=== PATIENT | female | born 1965 | race Caucasian/White ===

== ENCOUNTER → 2016-02-29 | Outpatient (CLI) | payer OTHER ==
[~2016-02-29] MED LIST: LEVO.075 PO; LEVO75TA3 PO; OXYC1SOL5 PO; RIVA10 PO; SERT-129 PO; SIMV40TA PO; Z.0.COMMODE-3:1; Z.0.WALKERFRONT; ZOCO40TA PO
[2016-02-29 15:28] LABS: HEMATOCRIT 34.5 % (35.0-46.0); MEAN CORPUSCULAR HGB CONC 33.3 % (32.0-36.0); PLATELET COUNT 243 TH/MM3 (150-450); RED BLOOD COUNT 4.26 MIL/MM3 (4.00-5.30); REVIEW FLAG FINAL; WHITE BLOOD COUNT 8.9 TH/MM3 (4.0-11.0)
== END ==
LOC: CPRE 14:48
PROVIDERS: ATTEND Orthopaedic Surgery
DX: Z01.812 Encounter for preprocedural laboratory examination (principal); Z96.652 Presence of left artificial knee joint; M24.562 Contracture, left knee
CPT/HCPCS: 36415; 85027

== ENCOUNTER → 2016-03-07 | Day surgery (SDC) | payer OTHER ==
[~2016-03-07] VITALS: Ht 160 cm; Wt 93.5 kg
[~2016-03-07] MED LIST changes: +ACETAMINOPHEN 1000 MG/100 ML VIAL IV ONE; +BUPIVACAINE/EPINEPHRINE 0.25% PF 30 ML VIAL ONE; +FAMOTIDINE 20 MG/2 ML VIAL ONE; +INSULIN HUMAN REGULAR 1,000 UNITS/10 ML VIAL SQ PRN; +KETOROLAC TROMETHAMINE 60 MG/2 ML (IM) VIAL IM ONE; +LACTATED RINGER'S 1000 ML IV SCH; -LEVO75TA3 PO; +METOPROLOL TARTRATE 25 MG TAB PO PRN; +MIDAZOLAM HCL 2 MG/2 ML VIAL ONE; +MORPHINE SULFATE 4 MG/ML INJ IV PUSH PRN; +ONDANSETRON HCL 4 MG/2 ML VIAL IV PRN; +ONDANSETRON HCL 4 MG/2 ML VIAL IV PUSH ONE; -OXYC1SOL5 PO; +PROPOFOL 200 MG/20 ML AMP IV ONE; -RIVA10 PO; +SODIUM CHLORID 0.9% 500 ML IV SCH; +SODIUM CHLORIDE 0.9% FLUSH 5 ML FLUSH IVF PRN; +SODIUM CHLORIDE 0.9% FLUSH 5 ML FLUSH IVF SCH; -Z.0.COMMODE-3:1; -Z.0.WALKERFRONT; -ZOCO40TA PO; +ceFAZolin 1,000 MG/NS 100 ML IV SCH; +ceFAZolin INJ 1,000 MG VIAL ONE; +fentaNYL CITRATE 250 MCG/5 ML AMP ONE; +oxyCODONE/ACETAMINOPHEN 5 MG/325 MG TAB PO PRN
[2016-03-07 06:29] VITALS: BP 147/70; PULSE 72; RESP 20; TEMP 97.7; O2SAT 99
[2016-03-07 11:12] VITALS: BP 158/75; PULSE 80; RESP 18; TEMP 98.3; O2SAT 98
--- NOTE | 2016-03-12 23:23 | MP ---
cc: Lisa RIVERA. DATE OF SURGERY 03/07/16 PREOPERATIVE DIAGNOSIS Arthrofibrosis left total knee arthroplasty. POSTOPERATIVE DIAGNOSIS Arthrofibrosis left total knee arthroplasty. OPERATION PERFORMED Closed manipulation left knee and arthroscopic resection of scar left knee SURGEON Shayan Rivera MD BUSINESS INTELLIGENCE DEVEL[employer] [place] INFANTE ANESTHESIA General endotracheal with supplemental local. FINDINGS Preoperative range of motion was 0 degrees extension to nearly 100 degrees of flexion. The postoperative range of motion was 0 degrees extension to 125 degrees of flexion with gravity and 135 degrees with pressure. Intra-articular findings showed severe suprapatellar arthrofibrosis with scar tissue that was fairly proliferative. The patellofemoral joint tracked properly and appeared normal. The medial compartment had some hypertrophic scarring. There was scarring in the intercondylar area and infrapatellar area as well. Laterally there was extensive scarring with flap-like changes and meniscoid appearing scar along the lateral edge catching between the lateral femoral condyle and lateral tibial plateau. PROCEDURE IN DETAIL The patient was brought to the clean-air operating suite and a general endotracheal anesthetic was administered. She was placed into a supine position on the operating table. An appropriate time-out procedure was carried out. A closed manipulation was then carried out bringing the knee from a range of 0 degrees extension to 100 degrees of flexion initially followed up to 125 degrees of flexion by gravity with the thigh upright and 135 degrees with pressure. The stability was good. The patella tracking was satisfactory. After this was done, the patella was mobilized as well giving static pressure for the medial and lateral retinaculum. The left leg was then placed into a leg aguayo After placement of a pneumatic tourniquet and prepped with alcohol, Hibiclens and Chloraprep and draped in the usual manner with the knee draped free. She received prophylactic antibiotic in the form of Ancef preoperatively. A local anesthetic was used using Marcaine 0.25% with epinephrine in each incision site prior to making the incision. 2 cm proximal and medial to the superior medial pole of the patella, an inflow cannula was established using a blunt obturator through a stab wound. The knee was distended with lactated Ringer's solution after suctioning blood from the knee. The anterolateral parapatellar tendon infrapatellar approach was used for the scope cannula. With the knee distended with lactated Ringer's solution, The anterior of the knee was inspected. A needle was introduced from anteromedial to delineate proper instrument placement. The stab wound was made. A probe was introduced. Almost immediately, a 4.0 mm full radius resector was then used for debridement of scar tissue in the anterior medial aspect and to the infrapatellar area and intercondylar notch area. After the initial debridement was carried out, further debridement was carried out to the anterior aspect of the lateral compartment. The scope was then placed medial with the instrument placed lateral. The lateral meniscoid appearing material was then debrided with a combination of the shaver and the 3.4 mm Bio-vac suction basket forceps. Hemostasis was achieved with the [employer] electrocautery. After the medial and lateral compartments were completely and appropriately debrided, attention was then directed to the suprapatellar pouch. Scar tissue was debrided from this area as well and electrocautery used for hemostasis. The knee was then irrigated well with lactated Ringer's solution. A needle was introduced. The fluid was evacuated from the knee. The wounds were then closed with 4-0 Monocryl interrupted simple sutures with buried knots. The knee was injected with Marcaine 0.25% with epinephrine. The incision sites were likewise done for a total of 30 mL. Steri-Strips were applied followed by dry dressing, ABD pad, sterile Sof-Rol and Khang bandage. She was transferred to the recovery room in satisfactory condition having tolerated the procedure well. Counts were correct. Specimens none. Estimated blood loss approximately 10 mL. MD CICI Garland/ /9:48 AM /11:07 PM
== END | disposition home or self-care (01) ==
LOC: HSDC 06:01
PROVIDERS: ATTEND Orthopaedic Surgery
DX: M24.662 Ankylosis, left knee (principal); Z96.652 Presence of left artificial knee joint
CPT/HCPCS: 01380; 27570; J0131; J0690; J1885; J2250; J2405; J3010; J7120